=== PATIENT | female | born 1995 | race Caucasian/White ===

== ENCOUNTER 2016-09-24 13:22 | Inpatient (IN) | payer OTHER ==
[~2016-09-24] VITALS: Ht 162.6 cm; Wt 75.0 kg
[~2016-09-24 13:22] MED LIST: HYDR1TAB69 PO; MEDR150D9 IM
[2016-09-24 13:27] VITALS: BP 157/99; PULSE 124; RESP 26; O2SAT 96
[2016-09-24] MEDS ORDERED: Ondansetron 8 mg ODT Tablet ONE (13:29)
[2016-09-24] MEDS ORDERED: Ondansetron 2 mg/mL 2 mL Inj ONE (14:03)
[2016-09-24] MEDS ORDERED: Morphine PF 0.5 mg/mL 10 mL Inj IV ONE (14:15)
[2016-09-24] MEDS ORDERED: 0.9% Sodium Chloride 1,000 ML IV SCH (14:15)
[2016-09-24 14:33] LABS: BASOPHILS % (AUTO) 0.1 % (0-3); EOSINOPHILS % (AUTO) 0.2 % (0-5); MONOCYTES % (AUTO) 3.8 % (4-12); Mean Corpuscular Hemoglobin 30.8 pg (27.0-35.0); Mean Corpuscular Volume 90.7 fL (81-100); NEUTROPHILS % (AUTO) 90.7 % (40-74); Platelet Count 206 bil/L (150-400)
[2016-09-24 14:44] LABS: Magnesium 1.5 mg/dL (1.6-2.6)
[2016-09-24 14:50] LABS: APPEARANCE,URINE HAZY (CLEAR,HAZY); COLOR,URINE DARK YELLOW (YELLOW); OCCULT BLOOD,URINE SMALL (NEGATIVE); PH,URINE 5.5 (5.0-8.0)
[2016-09-24 14:52] LABS: UROBILINOGEN,URINE NORMAL (NORMAL)
--- NOTE | 2016-09-24 15:09 | ED.REPORT ---
HPI-Abd Pain F Under 40 Date of Service Sep 24, 2016 ED Provider: Doc,Ed MD 21yoF presents with abdominal pain, nausea and vomiting, diarrhea since early this morning. The patient states that she is having bouts of diarrhea and vomiting simultaneously. She denies blood in her vomit or in her stool. She is on a combined oral contraceptive pill and has had her gallbladder out previously. The abdominal pain is described as cramping knots and with severe waves of pain. Nursing Notes Stated Complaint: VOMITING Chief Complaint: Female Abdominal Pain Nursing Notes Reviewed: Yes Allergies: Coded Allergies: azithromycin (Verified Allergy, Intermediate, Rash, 09/24/16) Scheduled Norgestimate-Ethinyl Estradiol (Ortho Tri-Cyclen) 1 Each Tablet 1 EACH PO DAILY General Time Seen by MD: 14:20 Chief Complaint Abdominal pain, Diarrhea moderate, Diarrhea severe, Vomiting moderate, Vomiting severe Hx Obtained From: Patient Arrived By: Walk-in Sudden in Onset?: Yes Onset Occurred: 9 - 12 hours ago Symptom Duration: Since onset Progression since Onset: Constant Location: : Epigastric Quality: Cramping, Sharp Radiation: : Does not radiate Severity: Current: Severe Severity: Maximum: Severe Recent Healthcare: No recent doctor visit, No recent hospitalization Risk Factors Ectopic Risk Stratification Risk factors reviewed Past Medical History Past Medical History chronic diarrhea Past Surgical History Reports: Cholecystectomy Smoking History Light Tobacco Smoker (3 cigarrettes per day) Social History Alcohol Use: "Social" Drug Use: THC Other Social History: Good social support, Local resident 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 Ambulatory Status Independent Review of Systems Basic Review of Systems Eyes: Vision NL, No discharge ENT: Hearing NL, No pain, No nasal congestion, No pharyngeal pain Hematologic: No bleeding, No bruising Endocrine: No cold intolerance, No heat intolerance, No weight gain, No weight loss Skin: No bruising, No rash, No itch Allergy / Immune: No allergy Neurologic: NL mental status, No weakness, No numbness Psychiatric: Normal thought content Constitutional: Reports: Chills, Denies: Fever Respiratory: Reports: Non-productive cough, Denies: Dyspnea on exertion, Hemoptysis Cardiovascular: Denies: Chest pain, Dyspnea on exertion, Edema GI: Reports: Abdominal pain, Nausea, Vomiting, Denies: Bloody/tarry stool, Constipation, Hematemesis, Hematochezia, Melena Female: Reports: Flank pain Musculoskeletal: Denies: Extremity pain, Extremity swelling, Neck pain Complete sys rev & neg: except as marked. Physical Exam Initial Vital Signs Vital Signs (First) Date Time Temp Pulse Resp B/P Pulse Ox O2 Delivery O2 Flow Rate FiO2 09/24/16 13:27 36.7 124 26 157/99 96 Room Air Initial VS: Reviewed Head / Eyes: Atraumatic, Normocephalic, PERRL ENT: Mucous membranes moist, Conjunctiva normal, No scleral icterus Neck: Supple, Non-tender, Full range of motion Lymphatic: No lymphadenopathy Extremities: Vascular intact, Neuro intact, No swelling, No tenderness Skin: Warm, Dry, No cyanosis Neurologic: Alert, Oriented, Nonfocal Psychiatric: Mood/affect normal, Behavior normal, Normal thought content General/Constitutional: Awake, Alert, Well appearing Distress / Hydration: Positive: Distress moderate Appearance / Presentation: Positive: Ill appearing/not toxic, In pain Respiratory / Chest: Breath sounds NL, Breath sounds = bilat, No respiratory distress, No rales, No rhonchi, No wheezing Cardiovascular: Heart rate NL, Regular rhythm, Heart sounds NL, Peripheral circulation NL Abdomen: Soft, No guarding, No rebound, BS normoactive, No distention, No palpable mass, No pulsatile mass Tenderness/Guarding/Rebound: Positive: Tender epigastric Organomegaly / Mass / Hernia: Negative: Hepatomegaly, Splenomegaly Head / Eyes: Normocephalic, PERRL, EOMI, No scleral icterus ENT: Airway patent, Mucous membranes moist, Pharynx NL Skin: Color NL, No rash, Warm Interpretation & Diagnostics Lab Results Interpretation Result Diagram: 09/24/16 1400 09/24/16 1400 Test 09/24/16 14:00 09/24/16 14:23 09/24/16 14:42 09/24/16 14:47 White Blood Count 17.5th/mm3 (3.8-10.1) Red Blood Count 4.83mil/mm3 (3.90-5.20) Hemoglobin 14.9g/dL (12.0-15.6) Hematocrit 43.8% (35.0-46.0) Mean Corpuscular Volume 90.7fL (81-100) Mean Corpuscular Hemoglobin 30.8pg (27.0-35.0) Mean Corpuscular Hemoglobin Concent 34.0% (32.0-37.0) Red Cell Distribution Width 11.6% (12.3-15.4) Platelet Count 206bil/L (150-400) Neutrophils (%) (Auto) 90.7% (40-74) Lymphocytes (%) (Auto) 4.9% (14-46) Monocytes (%) (Auto) 3.8% (4-12) Eosinophils (%) (Auto) 0.2% (0-5) Basophils (%) (Auto) 0.1% (0-3) Sodium Level 137mEq/L (134-144) Potassium Level 4.2mEq/L (3.5-5.2) Chloride Level 103mEq/L (97-108) Carbon Dioxide Level 17mmol/L (18-29) Blood Urea Nitrogen 13mg/dL (6-20) Creatinine 0.64mg/dL (0.57-1.00) Estimat Glomerular Filtration Rate 166mL/min (>59) Glucose Level 118mg/dL (60-99) Calcium Level 8.9mg/dL (8.5-10.1) Magnesium Level 1.5mg/dL (1.6-2.6) Total Bilirubin 0.6mg/dL (0.0-1.2) Aspartate Amino Transf (AST/SGOT) 17U/L (0-50) Alanine Aminotransferase (ALT/SGPT) 14U/L (0-32) Alkaline Phosphatase 58U/L (25-150) Total Protein 7.4g/dL (6.4-8.4) Albumin 4.1g/dL (3.4-5.0) Lipase 25U/L (13-60) Urine Color Dark yellow (YELLOW) Urine Appearance Hazy (CLEAR,HAZY) Urine pH 5.5 (5.0-8.0) Urine Specific Buchanan 1.030 (1.003-1.035) Urine Protein Negativemg/dL (NEG,TRACE) Urine Glucose (UA) Negativemg/dL (NEGATIVE) Urine Ketones 80mg/dL (NEGATIVE) Urine Occult Blood Small (NEGATIVE) Urine Nitrite Negative (NEGATIVE) Urine Bilirubin Negative (NEGATIVE) Urine Urobilinogen Normalmg/dL (NORMAL) Urine Leukocyte Esterase Negative (NEGATIVE) Urine RBC 0-2/hpf (0-2) Urine WBC 0-5/hpf (0-5) Urine Epithelial Cells Occasional/hpf (NONE-MOD) Urine Crystals Amorphous urates (NONE Urine Bacteria Few/hpf (NONE-FEW) Urine Hyaline Casts None/lpf (NONE) Urine Granular Casts None seen (NONE SEEN) Urine Waxy Casts None seen (NONE SEEN) Urine Red Blood Cell Casts None seen (NONE SEEN) Urine White Blood Cell Casts None seen (NONE SEEN) Urine Mucus Present (None Seen) Urine Trichomonas None seen (NONE SEEN) Urine Yeast None (NONE SEEN) Urinalysis Comment None Urine Culture Reflexed Not indicated Hold Urine Received (Received) HCG Beta Subunit < 0.500mIU/mL Procalcitonin 0.08ng/mL (0.00-0.08) Test 09/24/16 15:06 Lactic Acid Level 1.6mmol/L (0.4-2.0) Lab Results Interpretation: Dr. Herrera interepretation: CBC significant leukocytosis CMP - low CO2 consistent with volume depletion and GI volume loss negative Magnesium marginally low Re-Eval/Medical Decision Med Decision/Clinical Course 21yoF presents with colic abdominal pain with diarrhea and vomiting. On physical exam the patient is tachypnic and tachycardic in moderate distress. Pain on palpating in the epigastrium and in the left flank. Labs show a anion gap metabolic acidosis with bicarb at 17. Lactic acid has been ordered to confirm cause of acidosis. Tachynpea is likely a compensation for the acidosis. WBC of 17k with elevated HR and RR consistent with Sepsis likely source is gastrointestinal at this time. Source of Hx: Old records Re-Evaluation/Progress #1: Time of Eval: 15:30 Re-Evaluation/Progress Note: Patient turned over to me at change of shift, I (Dr. Herrera) went and reexamined the patient personally. Patient still with ongoing pain, has persistent pain and localized abdominal tenderness that mid abdominal/right sided abdomen Re-Evaluation/Progress #2: Time of Eval: 16:38 Re-Evaluation/Progress Note: Patient reports nausea some better after vomiting and CT scan, but pain still persists at 9 out of 10 and still uncomfortable. Patient updated regarding upcoming surgical consultation Consultation #1: Consulted With: Surgeon Call Returned at: 16:28 Director Public: Will see patient Note: Consult for concern on CT regarding possible closed loop bowel obstruction Consultation #2: Consulted With: Surgeon Note: Dr. Perera saw the patient, recommends admission to the hospitalist service, NG tube, IV fluids and will follow-but does not think surgical intervention is indicated at this time. See their consult note Patient is advised Discharge & Departure Primary Impression: Abdominal pain Abdominal location: unspecified location Qualified Code: R10.9 - Unspecified abdominal pain Additional Impressions: Vomiting Vomiting type: unspecified Vomiting Intractability: intractable Nausea presence: unspecified Qualified Code: R11.10 - Vomiting, unspecified Dehydration Referrals: Melissa Denton PA-C (PCP) Attending Statment This patient was initially seen by the resident. However I personally interviewed, examined, and assumed care for this patient. Review the resident chart, I also reviewed laboratory studies. Laboratory studies were notable for significant leukocytosis, and a moderate metabolic acidosis consistent with dehydration and GI The patient is currently have ongoing pain, also tenderness, and intractable nausea despite several doses of pain and nausea medicine. I felt at this point imaging was indicated and CT was performed. The CT was interpreted by the radiologist concerning for possible closed loop hernia, so surgery was contacted and saw the patient. At this point the patient says she starting to improve and feel better, surgery did not find indication the patient required emergent surgery-but does recommend admission, NG tube placement, continue pain and nausea management, IV rehydration and they will follow the patient on the floor. Patient received oxymetazoline, bupivacaine with epinephrine via mucosal atomization advised to facilitate NG tube placement. An NG tube was placed. The patient continuously pain and nausea medicine and is improved at time of admission. Frandy Pettit DO Sep 24, 2016 14:33 Michael Herrera MD Sep 24, 2016 15:35
[2016-09-24] MEDS ORDERED: 0.9% Sodium Chloride 1,000 ML IV ONE ×2 (15:30→15:35)
[2016-09-24] MEDS ORDERED: Promethazine Inj 25 MG in Dextrose 5%-Pha MIX 50 ML IV ONE (15:35)
[2016-09-24] MEDS: HYDROmorphone 0.5 mg/0.5 mL iSecure Syringe IVPUSH PRN ×4 (15:44→20:03)
--- NOTE | 2016-09-24 16:22 | DRSVH ---
PROCEDURE: CT ABDOMEN AND PELVIS WITH CONTRAST ([id number]) INDICATIONS: abd pain TECHNIQUE: After the administration of intravenous contrast, 5 mm thick sections acquired from the diaphragm to the symphysis. 5 mm coronal and sagittal reformats were acquired. For radiation dose reduction, the following was used: automated exposure control, adjustment of mA and/or kV according to patient siz e. COMPARISON: None. FINDINGS: Image quality: Excellent. ABDOMEN: Lung bases: Lung bases are clear. Heart size is normal. Solid organs: Liver and spleen are normal in size and enhancement. Gallbladder is surgically absent . Biliary system is non dilated. Pancreas enhances normally. No adrenal nodules. Kidneys demonstr ate normal size and enhancement, without hydronephrosis. Peritoneum and bowel: Mildly dilated loops of proximal small bowel left upper quadrant. Loops of smal l bowel are dilated up to 3.4 cm in maximum diameter. The duodenum and proximal jejunum are normal in caliber. Distal transition zone is in the proximal ileum. No free fluid or air. Nodes and vessels: No retroperitoneal or mesenteric adenopathy by size criteria. Aorta and inferior vena cava are normal in size. The appendix is normal. Miscellaneous: No ventral hernias. Umbilical piercing hardware is noted. PELVIS: Genitourinary: Bladder wall thickness is normal. Miscellaneous: No inguinal hernias or adenopathy. Bones: No suspicious bony lesions. No vertebral body compression fractures. IMPRESSION: 1. Mildly dilated loop of small bowel in the left upper quadrant suspicious for early or partial smal l bowel obstruction. Given the appearance of the dilated loops of small bowel, closed-loop obstructio n cannot be excluded. 2. The appendix is normal. 3. No free intraperitoneal fluid or air. 4. Status post cholecystectomy. 5. Findings telephoned to Dr. Michael Herrera on 09/24/2016 at 1617 hrs. Dictated by: Lady Bridges MD, PhD on 09/24/2016 at 16:09 Approved by: Lady Bridges MD, PhD on 09/24/2016 at 16:20
[2016-09-24 16:40] VITALS: BP 131/82; PULSE 90; RESP 16; O2SAT 100
[2016-09-24] MEDS ORDERED: Magnesium Sulf 2 Gm/50mL Water 2 GM in IV Premix 1 EACH IV ONE (17:35)
[2016-09-24] MEDS ORDERED: NORG1TAB7 PO (17:38)
[2016-09-24] MEDS ORDERED: Polyethylene Glycol (PEG) 17 Gm Powder PO PRN (18:05)
[2016-09-24] MEDS ORDERED: Alum-Mag Hydrox-Simeth 30 mL Suspension PO PRN (18:05)
--- NOTE | 2016-09-24 18:25 | CONS ---
[address] [address] CONSULTATION REPORT PATIENT: JOSE SILVESTRE : 1995 MR#: [id number] ADMIT: 09/24/2016 JOB ID: [id number] DATE OF SERVICE: 09/24/2016 REASON FOR CONSULTATION: Michael Herrera MD of the emergency department regarding further evaluation and management of possible small bowel obstruction. HISTORY OF PRESENT ILLNESS: The patient is an otherwise healthy, 21-year-old female, who awoke in the early hours of this morning with complaint of epigastric abdominal pain and subsequent vomiting. She has had persistent cyclical vomiting ever since which prompted her to come to the emergency department. Today, she was found to have a leukocytosis of 17.5. Lactic acid has been normal at 1.6. Her beta hCG was normal and procalcitonin was also normal. CT scan of the abdomen and pelvis was obtained which I personally reviewed. This shows multiple mildly dilated loops of small bowel and was read as suspicious for early or partial small bowel obstruction. Given these findings, I was consulted. The patient tells me she is feeling a little bit better since. She has had this pain in the past but never to this degree. She finds that the vomiting relieves her pain. She has also been having watery diarrhea and terrible headache as well. PAST MEDICAL HISTORY: None. PAST SURGICAL HISTORY: 1. Laparoscopic cholecystectomy at age 14 for acute cholecystitis. 2. Pyloromyotomy as an infant for pyloric stenosis. MEDICATIONS: Oral contraceptive pills. ALLERGIES: AZITHROMYCIN. FAMILY HISTORY: Family history is reviewed. Significant for diabetes and hypertension. SOCIAL HISTORY: She lives in [place]. She works at a marijuana dispensary. She smokes three tobacco cigarettes per day and about 1 g of marijuana per day. She occasionally drinks alcohol but has not recently. REVIEW OF SYSTEMS: Full review of systems is obtained and as per the HPI. PHYSICAL EXAMINATION: She is currently afebrile with temperature 36.8 degrees. She was initially tachycardic this afternoon at 124 but has a heart rate of 90 beats per minute now. Blood pressure is 131/82, satting 100% on room air. The respiratory 16 breaths per minute. In general, she appears comfortable in no acute distress. Cardiovascular: She has a regular rate and rhythm. No appreciated murmurs, rubs, gallops. Pulmonary: Lungs clear to auscultation bilaterally. Vascular: She has no carotid bruit. Neck she has no thyromegaly. Lymph: She has no cervical lymphadenopathy. GI: Her abdomen is soft, nontender, nondistended. She has a right upper quadrant transverse scar. Extremities: Warm without significant edema. Skin is warm without rash. Neuro is grossly intact. Psych is pleasant and appropriate. LABORATORIES: Her white blood cell count this afternoon was 17.5, hematocrit was 43.8, platelet count 206. Her creatinine was 0.64, lactic acid 1.6, procalcitonin 0.08. IMAGING: CT scan is personally reviewed and as per the HPI. ASSESSMENT AND PLAN: This is a 21-year-old female with complaint of abdominal pain and vomiting with CT scan suggestive of possible early small bowel obstruction. I personally reviewed the images of the CT scan. Though it is possible this represents early partial small bowel obstruction, I think it is more likely this is an ileus. Her other surgical history could certainly lead to adhesions that could cause a small bowel obstruction. Regardless, her examination is relatively benign at this time with no abdominal pain or tenderness on exam. She does have some mild persistent nausea. I recommend admission to the hospitalist service with placement of an NG tube at this time. I will continue to follow along but I anticipate that she will likely resolve with conservative management. The other possibility is that this could be cyclical vomiting related to marijuana use though the elevated white blood cell count makes me less inclined toward that diagnosis.
[2016-09-24 20:10] VITALS: BP 128/79; PULSE 92; RESP 17; O2SAT 96
[2016-09-24] MEDS ORDERED: 0.9% Sodium Chloride 250 ML ONE (21:46)
[2016-09-24] MEDS: Famotidine Inj 20 MG in IV Premix 1 EACH IV SCH (21:48)
[2016-09-24] MEDS ORDERED: HYDROmorphone 1 mg/mL Inj IVPUSH PRN (22:10)
--- NOTE | 2016-09-24 22:31 | PCM.HPMED ---
Subjective Date of Service Sep 24, 2016 Primary Provider: Admitting Physician: Wilfrid Sutherland MD Primary Care Physician: Melisas Denton PA-C Attending Physician: Wilfrid Sutherland MD Chief Complaint: Abdominal pain/nausea and vomiting plus diarrhea History of Present Illness: 21yoF presents with abdominal pain, nausea and vomiting, diarrhea since early this morning. The patient states that she is having bouts of diarrhea and vomiting simultaneously. She denies blood in her vomit or in her stool. She is on a combined oral contraceptive pill and has had her gallbladder out previously. The abdominal pain is described as cramping knots and with severe waves of pain. Review of Systems: Gen.: No fevers chills weight loss weight gain Eyes: no visual disturbances or blurring vision HEENT: No nose/throat drainage, no pain in ears or throat, no hearing loss Lymph: No lymph nodes noted Cardiac: No chest pain, orthopnea, PND, palpitations , pedal edema or dyspnea on exertion Pulmonary: no cough, wheezing or bringing up of sputum GI: No anorexia nausea vomiting blood or black in the stool : no dysuria hematuria urinary frequency or decrease in urine output Musculoskeletal: Joint swelling no joint pain no new muscle aches or back pain Neuro: No syncope, seizures no loss of consciousness no new focal weakness, numbness or tingling Psychiatric: New new anxiety insomnia or depression Endocrine: No new heat or cold intolerances polyuria or polydipsia Hematology: No lymphadenopathy or easy bleeding or bruising noted skin: No new rashes, stasis dermatitis Allergies Coded Allergies: azithromycin (Verified Allergy, Intermediate, Rash, 09/24/16) Home Medications Oral contraceptives PMH chronic diarrhea Past Surgical History Reports: Cholecystectomy Pyloric stenosis in childhood Smoking History Light Tobacco Smoker (3 cigarrettes per day) Social History Alcohol Use: "Social" Drug Use: THC Other Social History: Good social support, Local resident Occupation works in [employer] Ambulatory Status Independent Family history mother has cardiac issues Social History Hx Alcohol Use: Yes (rarely) Hx Substance Use: Yes (marijuana) Smoking Status: Light Tobacco Smoker Exam Vital Signs Vital Sign - Last Date Time Temp Pulse Resp B/P Pulse Ox O2 Delivery O2 Flow Rate FiO2 09/24/16 20:10 37.5 92 17 128/79 96 Room Air Exam Gen.- A+ O 3 no apparent distress. Eyes- open conjunctiva clear, pupils equal nonicteric Mouth- oral mucosa moist, no exudate ENT- ears normal, nose normal Neck- supple/trach midline CVS- RRR no murmur or gallop Lungs- CTA GI- NABS/NT soft Musc- moving 4 no obvious deformity Neuro- cranial nerves II through XII intact to gross examination, nonfocal Skin- warm and dry, no rashes/lesions/wounds noted Psych- pleasant and appropriate, Lab and Diagnostics Labs Lactate normal, magnesium 1.5, LFTs normal, urine negative, UA normal Result Diagram: 09/24/16 1400 09/24/16 1400 X-Rays, CTs and MRIs CT abd/pelvis- concurrently reviewed by me 1. Mildly dilated loop of small bowel in the left upper quadrant suspicious for early or partial small bowel obstruction. Given the appearance of the dilated loops of small bowel, closed-loop obstruction cannot be excluded. 2. The appendix is normal. 3. No free intraperitoneal fluid or air. 4. Status post cholecystectomy. 5. Findings telephoned to Dr. Michael Herrera on 09/24/2016 at 1617 hrs Dictated by: Lady Bridges MD, PhD on 09/24/2016 at 16:09 Assessment & Plan 21-year-old female with probable SBO being managed medically with surgery (Dr Perera) following-thank you. Of concern to me is the patient's regression/ worsening when NG tube was not really working. Her pain is primarily epigastric although CT scan suggests a small bowel obstruction much lower down. This in conjunction with her history of surgery 6 weeks of age for pyloric stenosis prompts concerns for possible gastric issues. For now we are treating conservatively with an NG tube, following up labs in the morning for leukocytosis and hypomagnesemia. Her mother is familiar with a good number of physicians here as a caregiver I think for high risk clientele I would have a low tolerance for GI consult. Abdominal pain, diarrhea, nausea and vomiting- morphine did not work for her hydromorphone has, the diarrhea has resolved since presentation, no further nausea and vomiting since NG tube insertion. SBO-output from NG is minty green very unusual color, if she has continued symptoms and not much output perhaps a Gastrografin study to verify placement or simple flat plate. It appears that they are very aware of the fact that the small gauge tube she has seems to adhere to the side of her stomach and has not been entirely effective. epigastric pain- in the setting of the history of the pyloric stenosis would have low tolerance to get GI consult [id number]-[id number]-ut in a.m. likely stress reaction no source of or other signs of infection Hypomagnesemia-replaced in the emergency room will follow up in the a.m. Prophylaxis-DVT none patient is low risk, GI patient is on famotidine IV every 12 Disposition-full code from home Time spent 50min Wilfrid Sutherland MD Sep 24, 2016 22:31
[2016-09-24 23:40] VITALS: BP 126/72; PULSE 89; RESP 17; O2SAT 95
[2016-09-25] MEDS: HYDROmorphone 0.5 mg/0.5 mL iSecure Syringe IVPUSH PRN ×9 (00:44→15:24)
[2016-09-25 03:31] LABS: BASOPHILS % (AUTO) 0 % (0-3); EOSINOPHILS % (AUTO) 0.4 % (0-5); MONOCYTES % (AUTO) 8.7 % (4-12); Mean Corpuscular Hemoglobin 30.6 pg (27.0-35.0); NEUTROPHILS % (AUTO) 65.5 % (40-74); Platelet Count 154 bil/L (150-400)
[2016-09-25] MEDS: Ondansetron 2 mg/mL 2 mL Inj IVPUSH PRN ×2 (03:34→05:40)
--- NOTE | 2016-09-25 03:45 | NUR ---
Arrival to Unit Patient arrived to floor at 2007 via ED [facility]. Patient was able to ambulate independently to hospital bed. Complains of 8/10 abdominal pain. Denies nausea upon admission. NG tube is in place and has been connected to high intermittent suction per MD orders. 1mg Dilaudid IVP was given per MD's initial orders, and upon reassessment patient stated relief. 0.5mg dilaudid IVP is now ordered Q1 hour for pain. Patient continues to complain of 8-9/10 pain. At approx 0330 patient was crying and complaining of 9/10 abdominal pain, and nausea. Zofran, and pain medication given by lithopone charger. Will continue to monitor.
[2016-09-25 03:51] LABS: Magnesium 1.6 mg/dL (1.6-2.6)
--- NOTE | 2016-09-25 03:51 | NUR ---
NG Tube Initially patients NG tube, on high int. suction per MD orders, was putting out a light green drainage. As shift has progressed color has become a darker more brownish color. MD notified and a Type and Cross has been ordered. Labs are to be drawn in the am. Patients vitals are WNL. T 36.7, HR 89, RR 17, BP 126/72, O2 Sats 95% on room air. No additional orders at this time. Will continue to monitor.
[2016-09-25 04:32] VITALS: BP 124/76; PULSE 87; RESP 16; O2SAT 97
--- NOTE | 2016-09-25 06:02 | NUR ---
Pain/ Nausea Patient complaining of increased pain and nausea. States that she feels the pain and nausea is worsening as the night progresses. 4mg Zofran IVP and .5mg Dilaudid IVP was given. Patient states no relief upon reassessment, and states feeling even more nauseous. MD notified, awaiting orders. Care continues. Addendum: 09/25/16 at 0626 by ERICK RAMOS RN Received order for Phenergan 12.5mg IV Q6H PRN
[2016-09-25] MEDS: Promethazine Inj 12.5 MG in 0.9% Sodium Chloride 50 ML IV PRN ×3 (06:33→22:01)
[2016-09-25 07:39] VITALS: BP 108/69; PULSE 83; RESP 16; O2SAT 97
[2016-09-25] MEDS ORDERED: Potassium Chloride Inj 30 MEQ in Dextrose 5% 500 ML IV ONE (08:00)
[2016-09-25] MEDS ORDERED: Magnesium Sulf 2 Gm/50mL Water 2 GM in IV Premix 1 EACH IV ONE (08:00)
[2016-09-25] MEDS: NORGESTIMATE ETHINYL ESTRADIOL PO SCH (08:30)
[2016-09-25] MEDS: Famotidine Inj 20 MG in IV Premix 1 EACH IV SCH ×2 (08:32→20:45)
--- NOTE | 2016-09-25 09:12 | PROG NOTE ---
[address] [address] PROGRESS NOTE PATIENT: JOSE SILVESTRE : 1995 MR#: [id number] ADMIT: 09/24/2016 JOB ID: [id number] DATE: 09/25/2016 SUBJECTIVE: The patient is seen in followup for her admission for partial small bowel obstruction. The NG tube was placed yesterday. Had moderate output. She continues to have some epigastric pain and nausea. She tells me that she gains tremendous relief with Zofran. She has remained afebrile and hemodynamically normal and this morning, she is mildly uncomfortable but alert and oriented in no distress. Her abdomen is soft, nondistended. She has mild tenderness to palpation in her epigastrium. Her white blood cell count has normalized to 6.7 from 17.5. Preop her hematocrit is at 35.8. Her creatinine is 0.61. Over the last 24 hours, her NG tube had 1400 out. ASSESSMENT AND PLAN: This is a 21-year-old female with a history of multiple prior abdominal operations admitted with what seems to be a partial small bowel obstruction. Today I recommend a Gastrografin challenge. Please administered 100 mL of Gastrografin through the NG tube. The tube can then be clamped with the instructions given to the nurse that should the patient experience nausea or vomiting, the NG tube should be hooked back up to suction. After 4 hours of clamping the NG tube, a plain abdominal film can be checked. If there is Gastrografin in the colon, then the tube can be removed. If not then the films should be rechecked at 24 hours. I will continue to follow along.
--- NOTE | 2016-09-25 11:48 | PCM.PNMED ---
Subjective Date of Service Sep 25, 2016 Subjective pt denied having n,v on NG, still drained good amount of biliary, brownish fluid 1.4liter out still has intense cramping on stomach every 15min, lasted 2-3min, feels hungry, thirsty plan for gastrografin study per today Exam Vital Signs Vital Sign - Last Date Time Temp Pulse Resp B/P Pulse Ox O2 Delivery O2 Flow Rate FiO2 09/25/16 07:39 36.7 83 16 108/69 97 Room Air Intake and Output 09/24/16 09/24/16 09/25/16 Cumulative From/Thru 15:00 23:00 07:00 09/24/16 13:27 - 09/25/16 04:32 Intake Total 1000 ml 1000 ml 0 ml 2000 ml Output Total 700 ml 1750 ml 2450 ml Balance 1000 ml 300 ml -1750 ml -450 ml Intake Oral 0 ml 0 ml IV Total 1000 ml 1000 ml 2000 ml Output Urine Total 350 ml 350 ml Gastric Drainage Total 1400 ml 1400 ml Other 700 ml 700 ml # Bowel Movements 0 0 Exam NAD, mildly distressed with NG no JVD, MMM, no LAD RRR, nl s1, s2 no mrg CTAB, no w,c S,ND,mild tender epigastric area,hypoactive BS+, no guarding/rTD warm, no edema, pulses 2/2 IVs and Medications Medications Reviewed: Medications were reviewed in detail Lab and Diagnostics Result Diagram: 09/25/165 09/25/16 0315 X-Rays, CTs and MRIs CT abd/pelvis- concurrently reviewed by me 1. Mildly dilated loop of small bowel in the left upper quadrant suspicious for early or partial small bowel obstruction. Given the appearance of the dilated loops of small bowel, closed-loop obstruction cannot be excluded. 2. The appendix is normal. 3. No free intraperitoneal fluid or air. 4. Status post cholecystectomy. 5. Findings telephoned to Dr. Michael Herrera on 09/24/2016 at 1617 hrs Dictated by: Lady Bridges MD, PhD on 09/24/2016 at 16:09 Assessment & Plan 21-year-old female with marijuana smoking , history of pyloric stenosis as a child s/p surgery p/w acute onset n,v, abdominal cramps, diarrhea. acute, active #acute onset n,v, abdominal cramps, diarrhea, POA, hx suggested that no prior episodes, pt has loose stools at baseline. no excessive marijuana use although utox positive.CT abd/pelvis with CE showed possible partial SBO, no signs of colitis/pancreatitis, NGT inserted on adm. surgery consulted -clinically stable on NG decompression, recommended Gastrografin challenge today to finish tomorrow. -will symptomatically manage with zofran, phenergan despite SBO, benadryl prn, pepcid q12h -s/p IVF bolus, continue 100cc/hr NS today -pain control with dilaudid 0.5mg q1h prn -serial abd exam qshift, if concerning for acute abdomen, will call surgery #leukocytosis, POA, likely due to stress reaction #mild AG metabolic acidosis, POA, from GI fluid loss, resolving #electrolytes imbalance, hypomagnesemia, hypokalemia from emesis, replete target K>4, Mg>2 chronic, stable marijuana use, UTOX positive, encouraged cessation, explained possible association with her sx history of pyloric stenosis as a child s/p surgery, unlikely related to her condition, not surgical candidate, appreciate surgical eval. dispo: likely 2-3more days dvt ppx: LMWH diet: NPO with NG Full Code VTE Mechanical Devices: Intermittant Pneumatic CD Time spent 35min Maria T Coats MD Sep 25, 2016 11:33
[2016-09-25] MEDS: 0.9% Sodium Chloride 1,000 ML IV SCH ×2 (12:38→20:46)
[2016-09-25 14:51] VITALS: BP 125/86; PULSE 69; RESP 16; O2SAT 98
[2016-09-25] MEDS ORDERED: Benzocaine-Menthol Lozenge 2/Pkg PO PRN (15:35)
--- NOTE | 2016-09-25 16:59 | DRSVH ---
PROCEDURE: X-RAY ACUTE ABDOMINAL SERIES ([id number]) INDICATIONS: SBO follow up TECHNIQUE: One view chest and two views of the abdomen were acquired. COMPARISON: [facility], CT, CT ABD PELVIS W CON, 09/24/2016, 15:49. FINDINGS: Surgical changes and devices: NG tube present. Chest: Lungs are clear. Heart size is normal. No pleural effusions. No pneumoperitoneum. Abdomen: Bowel gas pattern is normal. No suspicious calcifications. Visualized solid organ contour s appear normal. Bones: No suspicious bony lesions. IMPRESSION: Resolving small bowel obstruction. Dictated by: Fransisco Carroll RRA Interpreted: Lady Bridges MD on 09/25/2016 at 9:40 Transcribed by: ALFIE on 09/25/2016 at 9:40 Approved by: Lady Bridges MD, PhD on 09/25/2016 at 16:57
--- NOTE | 2016-09-25 17:25 | DRSVH ---
PROCEDURE: X-RAY GASTROGRAFIN CHALLENGE, 1 VIEW ABDOMEN INDICATIONS: SBO TECHNIQUE: One view of the abdomen acquired. COMPARISON: None. FINDINGS: Surgical changes and devices: A gastric tube present. Cholecystectomy clips. Bowel: Contrast media throughout the bowel is noted and there is mild prominence of small bowel withi n the mid left abdomen. Soft tissues: No suspicious abdominal calcifications. Visualized solid organ contours appear normal in size. Bones: No suspicious bony lesions. IMPRESSION: Need suggestive of partial small bowel obstruction. Dictated by: Fransisco Carroll [facility] Interpreted: Lady Bridges MD on 09/25/2016 at 17:16 Transcribed by: ALFIE on 09/25/2016 at 17:16 Approved by: Lady Bridges MD, PhD on 09/26/2016 at 15:19
[2016-09-25] MEDS: HYDROmorphone 1 mg/mL Inj IVPUSH PRN ×3 (17:41→23:27)
--- NOTE | 2016-09-25 19:33 | NUR ---
Pain/nausea/diarrhea Patient with fairly constant pain t/o day along with intermittent cramping and watery stool. Patient medicated with Dilaudid 0.5 ng iv several times but this dose was not effective enough so called and increase n dosage made. Pt had Gastrografin done today tolerated contrast via ng and clamped for 4 hours. Pt with reddish brown output from ng.
[2016-09-25 19:50] VITALS: BP 144/81; PULSE 69; RESP 16; O2SAT 100
--- NOTE | 2016-09-26 02:20 | NUR ---
Pain/ Nausea Patient states better pain control and nausea relief this evening. 12.5mg Phenergan IV Q6h PRN and Dilaudid 1mg IVP Q2h is being given to control pain and nausea. Patient states ondansetron did not provide her with any relief. Will continue to monitor, and continue Q1 hour checks.
[2016-09-26] MEDS: HYDROmorphone 1 mg/mL Inj IVPUSH PRN ×5 (03:29→21:38)
[2016-09-26] MEDS: Promethazine Inj 12.5 MG in 0.9% Sodium Chloride 50 ML IV PRN (04:09)
--- NOTE | 2016-09-26 04:34 | NUR ---
NG Patient notified nurse that NG had been pulled out. NG marker was at 50. NG reinserted to 60, and air instilled to confirm placement. NG hooked back up to high int. suction, but no drainage was present. Night hospitalist notified and ordered an abdominal x-ray to verify NGT placement. Awaiting dictation. Addendum: 09/26/16 at 0438 by ERICK RAMOS RN NGT on high int. suction has started to drain greenish bile again. Care continues.
[2016-09-26 05:20] VITALS: BP 116/79; PULSE 96; RESP 16; O2SAT 94
--- NOTE | 2016-09-26 08:16 | PROG NOTE ---
[address] [address] PROGRESS NOTE PATIENT: JOSE SILVESTRE : 1995 MR#: [id number] ADMIT: 09/24/2016 JOB ID: [id number] DATE: 09/26/2016 SUBJECTIVE: The patient is seen in followup for her possible partial small bowel obstruction. Yesterday, she had a Gastrografin challenge. The plain film obtained 4 hours or so after the administration of Gastrografin shows transit of the contrast already into her colon. This morning she continues to complain of some epigastric discomfort. OBJECTIVE: She has remained afebrile and hemodynamically normal. She is alert and oriented. She appears comfortable. Her abdomen is soft, nontender, nondistended. Mild tenderness in the epigastrium. Yesterday, she had a total of 1.8 L of NG tube output with additional 3 L overnight. She tells me she had two bowel movements yesterday though none are recorded. ASSESSMENT AND PLAN: This is a 21-year-old female admitted with what may have been a partial small bowel obstruction. Gastrografin challenge shows a rapid transit through to the colon. I removed her NG tube. I think she can start on a clear liquid diet and to go slow. I do not anticipate any need for surgery.
[2016-09-26] MEDS: NORGESTIMATE ETHINYL ESTRADIOL PO SCH (08:30)
[2016-09-26] MEDS: Famotidine Inj 20 MG in IV Premix 1 EACH IV SCH ×2 (09:06→23:05)
[2016-09-26] MEDS: 0.9% Sodium Chloride 1,000 ML IV SCH ×2 (09:06→16:00)
[2016-09-26] MEDS ORDERED: Pantoprazole 4 mg/mL 10 mL Inj IVPUSH SCH (09:15)
[2016-09-26] MEDS ORDERED: MetoCLOpramide 5 mg/mL 2 mL Inj IVPUSH SCH (09:15)
--- NOTE | 2016-09-26 09:30 | DRSVH ---
PROCEDURE: X-RAY ABDOMEN, ONE VIEW ([id number]) INDICATIONS: verify NGT placement TECHNIQUE: One view of the abdomen acquired. COMPARISON: [facility], CR, ABD/AP 1VW, 11/30/2011, 5:35. FINDINGS: Surgical changes and devices: Cholecystectomy clips. Nasogastric tube has been placed tip projected over the gastric antrum. Bowel: Residual contrast media seen within visualized portions of the colon. Soft tissues: No suspicious abdominal calcifications. Visualized solid organ contours appear normal in size. Bones: No suspicious bony lesions. IMPRESSION: Placement of nasogastric tube. Dictated by: Fransisco ELLINGTON Interpreted: Haydee Anton MD on 09/26/2016 at 9:28 Transcribed by: REVA on 09/26/2016 at 9:29 Approved by: Haydee Anton M.D. on 09/26/2016 at 14:54
[2016-09-26 10:12] LABS: BASOPHILS % (AUTO) 0.1 % (0-3); EOSINOPHILS % (AUTO) 0.5 % (0-5); MONOCYTES % (AUTO) 12.7 % (4-12); Mean Corpuscular Hemoglobin 30.9 pg (27.0-35.0); Mean Corpuscular Volume 92.4 fL (81-100); NEUTROPHILS % (AUTO) 62.6 % (40-74); Platelet Count 166 bil/L (150-400)
--- NOTE | 2016-09-26 10:24 | NUR ---
Social Work Note: Screen Note Data& Assessment: EMR reviewed. Genia Desir is a 21 year old female admitted on 09/24/16 for vomiting and abdominal pain . Pt has Hank LEROY for insurance coverage and sees Melissa Denton PA-C for primary care. Pt lives in [place] with alone and is independent at baseline. Pt is currently SBA in her room. No discharge needs identified at this time. SW to continue to follow if any needs arise. Plan: Anticipated discharge home via POV when medically ready. No discharge needs identified at this time. SW to continue to follow if any needs arise. Marci Pollard, JUAN, ACM
--- NOTE | 2016-09-26 11:15 | PCM.PNMED ---
Subjective Date of Service Sep 26, 2016 Subjective pt was tearful, stated that she was in pain all night cramping in nature, lasted >30min, on and off NG was discontinued by as no obstruction seen with Gastrografin challenge pt still has watery diarrhea Exam Vital Signs Vital Sign - Last Date Time Temp Pulse Resp B/P Pulse Ox O2 Delivery O2 Flow Rate FiO2 09/26/16 05:20 37.2 96 16 116/79 94 Room Air Intake and Output 09/25/16 09/25/16 09/26/16 Cumulative From/Thru 15:00 23:00 07:00 09/24/16 13:27 - 09/26/16 06:36 Intake Total 200 ml 2653 ml 4853 ml Output Total 400 ml 3000 ml 5850 ml Balance -200 ml -347 ml -997 ml Intake Oral 200 ml 0 ml 200 ml IV Total 2653 ml 4653 ml Output Urine Total 350 ml Gastric Drainage Total 400 ml 3000 ml 4800 ml Other 700 ml # Voids 3 2 5 # Bowel Movements 0 0 Exam distressed due to pain no JVD, MMM, no LAD RRR, nl s1, s2 no mrg CTAB, no w,c S,ND, mild epigastric td,normoactive BS+ warm, no edema, pulses 2/2 IVs and Medications Medications Reviewed: Medications were reviewed in detail Lab and Diagnostics Result Diagram: 09/26/16 0915 09/25/16 0315 X-Rays, CTs and MRIs CT abd/pelvis- concurrently reviewed by me 1. Mildly dilated loop of small bowel in the left upper quadrant suspicious for early or partial small bowel obstruction. Given the appearance of the dilated loops of small bowel, closed-loop obstruction cannot be excluded. 2. The appendix is normal. 3. No free intraperitoneal fluid or air. 4. Status post cholecystectomy. 5. Findings telephoned to Dr. Michael Herrera on 09/24/2016 at 1617 hrs Dictated by: Lady Bridges MD, PhD on 09/24/2016 at 16:09 Assessment & Plan 21-year-old female with marijuana smoking , history of pyloric stenosis as a child s/p surgery p/w acute onset n,v, abdominal cramps, diarrhea. acute, active #acute onset n,v, abdominal cramps, diarrhea, POA, hx suggested that no prior episodes, pt has loose stools at baseline. no excessive marijuana use although utox positive.CT abd/pelvis with CE showed possible partial SBO, no signs of colitis/pancreatitis, NGT inserted on adm. surgery consulted. pt was continued on NG decompression, no more obstruction with Gastrografin challenge seen, therefore NG was out 3/3 by -Given persistent symptoms, no SBO, will escalate meds for presumed gastroparesis -switched phenergan to metoclopramide q6, benadryl q6h, added PPI with h2 blockers, added erythromycin q8h -s/p IVF bolus on adm, continue 100cc/hr NS, replete lytes -pain control with dilaudid increased to 1-4mg q2 prn -will send stool pcr given persistent diarrhea despite no signs of infection. #mild AG metabolic acidosis, POA, from GI fluid loss, resolving #electrolytes imbalance, hypomagnesemia, hypokalemia from emesis, replete target K>4, Mg>2 chronic, stable #leukocytosis, POA, likely due to stress reaction, resolved #marijuana use, UTOX positive, encouraged cessation, explained possible association with her sx #history of pyloric stenosis as a child s/p surgery, unlikely related to her condition, not surgical candidate, appreciate surgical eval. dispo: likely 2-3more days dvt ppx: LMWH diet: NPO with NG Full Code VTE Mechanical Devices: Intermittant Pneumatic CD Time spent 35min Maria T Coats MD Sep 26, 2016 11:15
[2016-09-26 11:19] LABS: Magnesium 1.7 mg/dL (1.6-2.6); Phosphorus 2.4 mg/dL (2.5-4.9)
[2016-09-26] MEDS ORDERED: Magnesium Sulf 2 Gm/50mL Water 2 GM in IV Premix 1 EACH IV ONE (12:10)
[2016-09-26] MEDS ORDERED: Promethazine Inj 12.5 MG in 0.9% Sodium Chloride 50 ML IV SCH (12:20)
[2016-09-26] MEDS: SODIUM CHLORIDE 0.9% IV SCH ×3 (13:17→21:49)
[2016-09-26] MEDS: ERYTHROMYCIN IV SCH ×3 (13:17→21:49)
[2016-09-26 14:07] VITALS: BP 153/82; PULSE 93; RESP 18; O2SAT 98
--- NOTE | 2016-09-26 19:23 | NUR ---
Pain/NG/virus Patient with abd pain this am but has resolved most of the day . Diet increased and patient tolerated clear liquids so advanced to soft diet tonight. Patient had ng removed this am by surgeon. Stool sample sent and came back positive for norovirus so patient place din contact isolation.
[2016-09-26 19:58] VITALS: BP 127/82; PULSE 82; RESP 18; O2SAT 99
[2016-09-27] MEDS: 0.9% Sodium Chloride 1,000 ML IV SCH (01:18)
[2016-09-27] MEDS: ERYTHROMYCIN IV SCH (05:00)
[2016-09-27] MEDS: SODIUM CHLORIDE 0.9% IV SCH (05:00)
[2016-09-27 05:34] VITALS: BP 113/70; PULSE 77; O2SAT 98
[2016-09-27 06:51] LABS: Magnesium 1.8 mg/dL (1.6-2.6); Phosphorus 2.8 mg/dL (2.5-4.9)
[2016-09-27 07:03] LABS: BASOPHILS % (AUTO) 0.1 % (0-3); EOSINOPHILS % (AUTO) 1.3 % (0-5); MONOCYTES % (AUTO) 8.4 % (4-12); Mean Corpuscular Volume 90.9 fL (81-100); NEUTROPHILS % (AUTO) 63.1 % (40-74); Platelet Count 189 bil/L (150-400)
--- NOTE | 2016-09-27 07:36 | NUR ---
Patient Emotional On initial assessment, patient was crying. When asked, she stated that Dr. Perera took out her ng tube and did not explain anything else to her. She stated she was scared about what was going on with her stomach. Patient also stated that she tried to eat and after she had rice, her stomach pain increased significantly. Dilaudid IVP administered. VSS. Call light within reach. Care continues.
[2016-09-27] MEDS ORDERED: Pantoprazole 40 mg ER24 Tablet PO SCH (07:45)
[2016-09-27] MEDS ORDERED: oxyCODONE-Acetamin 5-325 mg Tablet PO PRN (07:45)
[2016-09-27] MEDS ORDERED: Ondansetron 8 mg ODT Tablet PO PRN (07:45)
[2016-09-27] MEDS: NORGESTIMATE ETHINYL ESTRADIOL PO SCH (08:30)
[2016-09-27] MEDS ORDERED: PANT40TA3 PO (09:31)
[2016-09-27] MEDS ORDERED: METO10TA3 PO (09:31)
[2016-09-27] MEDS ORDERED: ONDA8TAB10 PO (09:31)
[2016-09-27] MEDS ORDERED: OXYC1TAB24 PO (09:31)
--- NOTE | 2016-09-27 10:55 | NUR ---
Social Work- Readiness for Discharge Data: EMR reviewed. Pt is on day 3 of hospitalization for vomiting and abdominal pain. Per RN in rounds, pt to advance diet. Pt is not medically stable, anticipate discharge later today. Pt lives in [place] with roommate, Mariya, and is independent at baseline. SW spoke with pt regarding DPOA, left paperwork to be completed. Pt to discharge home with roommate to transport via POV. No discharge needs identified at this time. SW to continue to follow if any needs arise. Assessment: [place]. Plan: Anticipated discharge later today, home with roommate to transport via POV. No discharge needs identified at this time. SW to continue to follow if any needs arise. CT Rodriguez
--- NOTE | 2016-09-27 12:04 | NUR ---
Social Work- Discharge Data: EMR reviewed. Pt is on day 3 of hospitalization for vomiting and abdominal pain. Pt is medically stable to discharge today. Pt to discharge home with roommate to transport via POV. No discharge needs. Assessment: [place]. Plan: Pt to discharge home with roommate to transport via POV. No discharge needs. CT Rodriguez
--- NOTE | 2016-09-27 12:09 | PCM.DIMED ---
Discharge Instructions Date of Service Sep 27, 2016 Dates of Hospitalization Sep 24, 2016 at 18:39 Discharge Diagnosis Discharge Diagnosis acute viral gastroenteritis due to Noro virus probable partial small bowel obstruction due to functional impairment Medication Instructions You can take zofran every 6hours for nausea, vomiting You can take Reglan, percocet every 6hours for belly pain You can consider taking pantoprazole, anti-acid pills twice a day for 2-3more days until your symptoms completely resolved Diet Other (please slowly advance your diet to full regular diet) Activity No restrictions Call your provider Fever or Chills, Vomitting, Excessive diarrhea Patient Instructions You were hospitalized with intractable nausea, vomiting, abdominal pain, diarrhea, found to have noro virus, likely caused all of her symptoms. You were symptomatically managed with medicine, greatly improved. Please note that the virus can become contagious by contact, please keep hand hygiene appropriately Please note that Marijuana possibly associated symptoms similar to your presentation, complete cessation is recommended especially if this symptoms recur Follow-up plan Please follow up with her primary doctor in 2 weeks Follow-up Provider: Melissa Denton PA-C Follow-up with PCP in: 2 weeks Maria T Coats MD Sep 27, 2016 12:07
--- NOTE | 2016-09-27 13:17 | PROG NOTE ---
[address] [address] PROGRESS NOTE PATIENT: JOSE SILVESTRE : 1995 MR#: [id number] ADMIT: 09/24/2016 JOB ID: [id number] DATE: 09/27/2016 The patient says her abdominal pain and nausea has resolved. She is tolerating soft food and passing a normal bowel movement. Her abdomen is benign. IMPRESSION/PLAN: It does not look like she had a mechanical small bowel obstruction. General Surgery will sign off.
--- NOTE | 2016-09-27 14:03 | NUR ---
Discharge Orders for discharge were received. The patient was made aware of the plan to discharge and was agreeable to go. The patient was given information regarding her diagnosis and treatment, signs and symptoms to be aware of, follow up information as well as scripts and information on new medication. The patient signified understanding of this information and her asymptomatic IV was removed intact. The patient was then dressed in her own clothing and her belongings were gathered. The patient then ambulated to the main entrance to a private vehicle with a friend. At the time of discharge the patient was alert and oriented, without pain, nausea or other difficulties.
--- NOTE | 2016-09-28 20:56 | PCM.DC.MED ---
Discharge Summary Date of Service Sep 27, 2016 Dates of Hospitalization Date of Hospital Admission Sep 24, 2016 at 18:39 Date of Discharge: Sep 27, 2016 Providers: Admitting Physician: Wilfrid Sutherland MD Primary Care Physician: Melissa Denton PA-C Attending Physician: Wilfrid Sutherland MD Diagnosis at Time of Discharge Diagnosis at Time of Discharge acute problems acute viral gastroenteritis due to Noro virus probable partial small bowel obstruction due to functional impairment vs mechanical mild AG metabolic acidosis, electrolytes imbalance from GI fluid loss chronic problems #marijuana use #history of pyloric stenosis Consultations General surgery Procedures XRay, CTs & MRIs PROCEDURE: X-RAY GASTROGRAFIN CHALLENGE, 1 VIEW ABDOMEN INDICATIONS: SBO TECHNIQUE: One view of the abdomen acquired. COMPARISON: None. FINDINGS: Surgical changes and devices: A gastric tube present. Cholecystectomy clips. Bowel: Contrast media throughout the bowel is noted and there is mild prominence of small bowel within the mid left abdomen. Soft tissues: No suspicious abdominal calcifications. Visualized solid organ contours appear normal in size. Bones: No suspicious bony lesions. IMPRESSION: Need suggestive of partial small bowel obstruction. Dictated by: Fransisco Carroll [facility] Interpreted: Lady Bridges MD on 09/25/2016 at 17:16 Transcribed by: ALFIE on 09/25/2016 at 17:16 Approved by: Lady Bridges MD, PhD on 09/26/2016 at 15:19 PROCEDURE: CT ABDOMEN AND PELVIS WITH CONTRAST ([id number]) INDICATIONS: abd pain TECHNIQUE: After the administration of intravenous contrast, 5 mm thick sections acquired from the diaphragm to the symphysis. 5 mm coronal and sagittal reformats were acquired. For radiation dose reduction, the following was used: automated exposure control, adjustment of mA and/or kV according to patient size. COMPARISON: None. FINDINGS: Image quality: Excellent. ABDOMEN: Lung bases: Lung bases are clear. Heart size is normal. Solid organs: Liver and spleen are normal in size and enhancement. Gallbladder is surgically absent. Biliary system is non dilated. Pancreas enhances normally. No adrenal nodules. Kidneys demonstrate normal size and enhancement, without hydronephrosis. Peritoneum and bowel: Mildly dilated loops of proximal small bowel left upper quadrant. Loops of small bowel are dilated up to 3.4 cm in maximum diameter. The duodenum and proximal jejunum are normal in caliber. Distal transition zone is in the proximal ileum. No free fluid or air. Nodes and vessels: No retroperitoneal or mesenteric adenopathy by size criteria. Aorta and inferior vena cava are normal in size. The appendix is normal. Miscellaneous: No ventral hernias. Umbilical piercing hardware is noted. PELVIS: Genitourinary: Bladder wall thickness is normal. Miscellaneous: No inguinal hernias or adenopathy. Bones: No suspicious bony lesions. No vertebral body compression fractures. IMPRESSION: 1. Mildly dilated loop of small bowel in the left upper quadrant suspicious for early or partial small bowel obstruction. Given the appearance of the dilated loops of small bowel, closed-loop obstruction cannot be excluded. 2. The appendix is normal. 3. No free intraperitoneal fluid or air. 4. Status post cholecystectomy. 5. Findings telephoned to Dr. Michael Herrera on 09/24/2016 at 1617 hrs. Dictated by: Lady Bridges MD, PhD on 09/24/2016 at 16:09 Approved by: Lady Bridges MD, PhD on 09/24/2016 at 16:20 Brief History HPI was obtained by on 09/24 21yoF presents with abdominal pain, nausea and vomiting, diarrhea since early this morning. The patient states that she is having bouts of diarrhea and vomiting simultaneously. She denies blood in her vomit or in her stool. She is on a combined oral contraceptive pill and has had her gallbladder out previously. The abdominal pain is described as cramping knots and with severe waves of pain. Hospital Course 21-year-old female with marijuana smoking , history of pyloric stenosis as a child s/p surgery p/w acute onset n,v, abdominal cramps, diarrhea. acute problems #acute onset intractable n,v, abdominal cramps, likely due to CT abd/pelvis with CE on admission showed possible partial SBO, no signs of colitis/pancreatitis, NGT inserted on adm. surgery consulted given hx of pyloric stenosis as a child s/p surgery(?myotomy) pt was continued on NG decompression for few days. no more obstruction with Gastrografin challenge seen on 09/26, therefore NG was discontinued by . Pt later was found to have Noro virus from diarrhea. After NGT was off, pt was started on aggressive regimen for gastroparesis with metoclopramide q6, benadryl q6h, added PPI with h2 blockers, added erythromycin q8h. Symptoms rapidly improved. IVF was continued given GI fluid loss. Pain was eventually controlled without any n, v. patient was able to tolerate soft diet. Although pt smoke marijuana, given no daily smoking, no prior episode of similar symptoms, It was more likely related acute viral episodes triggered her symptoms. However, given strongly relation of mairijuana and CVS, it was strongly recommended to stop smoking. No surgical intervention recommended per surgery given improvement, deemed safe for d/c. #mild AG metabolic acidosis, POA, from GI fluid loss, resolved upon d/c. #electrolytes imbalance, hypomagnesemia, hypokalemia from emesis, resolved chronic, stable #leukocytosis, POA, likely due to stress reaction, resolved #marijuana use, UTOX positive, encouraged cessation, explained possible association with her sx #history of pyloric stenosis as a child s/p surgery, unlikely related to her condition, not surgical candidate, appreciate surgical eval. Exam Vital Signs (Last) Date Time Temp Pulse Resp B/P Pulse Ox O2 Delivery O2 Flow Rate FiO2 09/27/16 05:34 36.8 77 113/70 98 Room Air 09/26/16 19:58 18 Exam distressed due to pain no JVD, MMM, no LAD RRR, nl s1, s2 no mrg CTAB, no w,c S,ND, mild epigastric td,normoactive BS+ warm, no edema, pulses 2/2 Test 09/24/16 14:00 09/24/16 14:23 09/24/16 14:42 09/24/16 14:47 Lipase 25U/L (13-60) Urine Color Dark yellow (YELLOW) Urine Appearance Hazy (CLEAR,HAZY) Urine pH 5.5 (5.0-8.0) Urine Specific [place] 1.030 (1.003-1.035) Urine Protein Negativemg/dL (NEG,TRACE) Urine Glucose (UA) Negativemg/dL (NEGATIVE) Urine Ketones 80mg/dL (NEGATIVE) Urine Occult Blood Small (NEGATIVE) Urine Nitrite Negative (NEGATIVE) Urine Bilirubin Negative (NEGATIVE) Urine Urobilinogen Normalmg/dL (NORMAL) Urine Leukocyte Esterase Negative (NEGATIVE) Urine RBC 0-2/hpf (0-2) Urine WBC 0-5/hpf (0-5) Urine Epithelial Cells Occasional/hpf (NONE-MOD) Urine Crystals Amorphous urates (NONE Urine Bacteria Few/hpf (NONE-FEW) Urine Hyaline Casts None/lpf (NONE) Urine Granular Casts None seen (NONE SEEN) Urine Waxy Casts None seen (NONE SEEN) Urine Red Blood Cell Casts None seen (NONE SEEN) Urine White Blood Cell Casts None seen (NONE SEEN) Urine Mucus Present (None Seen) Urine Trichomonas None seen (NONE SEEN) Urine Yeast None (NONE SEEN) Urinalysis Comment None Urine Culture Reflexed Not indicated Hold Urine Received (Received) Urine Opiates Screen Negative Urine Methadone Screen Negative Urine Barbiturates Screen Negative Urine Amphetamines Screen Negative Urine Benzodiazepines Screen Negative Urine Cocaine Metabolite Screen Negative Urine Cannabinoids Screen Positive HCG Beta Subunit < 0.500mIU/mL Procalcitonin 0.08ng/mL (0.00-0.08) Test 09/24/16 15:06 09/27/16 06:05 Lactic Acid Level 1.6mmol/L (0.4-2.0) White Blood Count 6.8th/mm3 (3.8-10.1) Red Blood Count 3.64mil/mm3 (3.90-5.20) Hemoglobin 11.3g/dL (12.0-15.6) Hematocrit 33.1% (35.0-46.0) Mean Corpuscular Volume 90.9fL (81-100) Mean Corpuscular Hemoglobin 31.0pg (27.0-35.0) Mean Corpuscular Hemoglobin Concent 34.1% (32.0-37.0) Red Cell Distribution Width 11.2% (12.3-15.4) Platelet Count 189bil/L (150-400) Neutrophils (%) (Auto) 63.1% (40-74) Lymphocytes (%) (Auto) 26.8% (14-46) Monocytes (%) (Auto) 8.4% (4-12) Eosinophils (%) (Auto) 1.3% (0-5) Basophils (%) (Auto) 0.1% (0-3) Sodium Level 136mEq/L (134-144) Potassium Level 3.9mEq/L (3.5-5.2) Chloride Level 105mEq/L (97-108) Carbon Dioxide Level 19mmol/L (18-29) Blood Urea Nitrogen 5mg/dL (6-20) Creatinine 0.48mg/dL (0.57-1.00) Estimat Glomerular Filtration Rate 232mL/min (>59) Glucose Level 101mg/dL (60-99) Calcium Level 8.2mg/dL (8.5-10.1) Phosphorus Level 2.8mg/dL (2.5-4.9) Magnesium Level 1.8mg/dL (1.6-2.6) Total Bilirubin 0.3mg/dL (0.0-1.2) Aspartate Amino Transf (AST/SGOT) 15U/L (0-50) Alanine Aminotransferase (ALT/SGPT) 11U/L (0-32) Alkaline Phosphatase 50U/L (25-150) Total Protein 5.9g/dL (6.4-8.4) Albumin 3.0g/dL (3.4-5.0) Discharge Medications Discharge Medications Norgestimate-Ethinyl Estradiol (Ortho Tri-Cyclen) 1 Each Tablet 1 EACH PO DAILY (Reported) As needed Metoclopramide (Metoclopramide) 10 Mg Tablet 10 MG PO ACHS PRN PRN For GI Cramps Prescribed by: MARIA T HUBBARD MD Ondansetron ODT (Ondansetron ODT) 8 Mg Tab.rapdis 8 MG PO Q6H PRN PRN For Nausea /Vomiting Prescribed by: MARIA T HUBBARD MD Pantoprazole DR (Pantoprazole DR) 40 Mg Tablet.dr 40 MG PO BIDAC PRN PRN For GI Cramps Prescribed by: MARIA T HUBBARD MD oxyCODONE-Acetaminophen 5-325 mg (oxyCODONE-Acetaminophen 5-325 mg) 1 Each Tablet 1 TAB PO Q4H PRN PRN For Pain Prescribed by: MARIA T HUBBARD MD Additional med instructions You can take zofran every 6hours for nausea, vomiting You can take Reglan, percocet every 6hours for belly pain You can consider taking pantoprazole, anti-acid pills twice a day for 2-3more days until your symptoms completely resolved Followup Plan Disposition: home Follow-up plan Please follow up with her primary doctor in 2 weeks Discharge Diet: Other (please slowly advance your diet to full regular diet) Discharge Activity: No restrictions Patient Instructions You were hospitalized with intractable nausea, vomiting, abdominal pain, diarrhea, found to have noro virus, likely caused all of her symptoms. You were symptomatically managed with medicine, greatly improved. Please note that the virus can become contagious by contact, please keep hand hygiene appropriately Please note that Marijuana possibly associated symptoms similar to your presentation, complete cessation is recommended especially if this symptoms recur Follow-up Provider: Melissa Denton PA-C Follow-up with PCP in: 2 weeks Time spent 65min Maria T Hubbard MD Sep 28, 2016 20:56
== END 2016-09-27 12:15 | disposition home or self-care (01) | DRG 392 ==
LOC: SED 13:22 → OSC 18:39 → OBSVTOIN 18:39
PROVIDERS: ADMIT Hospitalist; ATTEND Hospitalist
PROC: 0D9670Z Drainage of Stomach with Drainage Device, Via Natural or Artificial Opening (ICD-10-PCS; principal; 2016-09-24)
DX: A08.11 Acute gastroenteropathy due to Norwalk agent (principal); E87.2 Acidosis; F17.210 Nicotine dependence, cigarettes, uncomplicated; E83.42 Hypomagnesemia; F12.90 Cannabis use, unspecified, uncomplicated; E87.6 Hypokalemia

== ENCOUNTER 2017-01-27 19:26 | Emergency (ER) | payer OTHER ==
[~2017-01-27] VITALS: Ht 165.1 cm; Wt 86.3 kg
[~2017-01-27 19:26] MED LIST changes: -HYDR1TAB69 PO; -MEDR150D9 IM; +METO10TA3 PO; +NORG1TAB7 PO; +ONDA8TAB10 PO; +OXYC1TAB24 PO; +PANT40TA3 PO
[2017-01-27 19:28] VITALS: BP 130/76; PULSE 86; RESP 16; O2SAT 99
--- NOTE | 2017-01-27 19:38 | ED.REPORT ---
HPI-Allergic Reaction Date of Service Jan 27, 2017 ED Provider: Dr. Duke Pt is a 22 year old female presenting to the ED complaining of a rash onset 4 days ago. She reports that it started as small, itchy, redness on her chest, but it has spread diffusely. She reports that she was camping and woke up with the rash. She has been taking Benadryl with moderate relief but that the rash remains. She denies any recent change in medication. Denies any other symptoms at this time. She denies fevers. Nursing Notes Stated Complaint: POSS ALLERGIC REACTION Chief Complaint: Allergic Reaction Nursing Notes Reviewed: Yes Allergies: Coded Allergies: azithromycin (Verified Allergy, Intermediate, Rash, 01/27/17) Scheduled Norgestimate-Ethinyl Estradiol (Ortho Tri-Cyclen) 1 Each Tablet 1 EACH PO DAILY Prednisone (PredniSONE) 20 Mg Tablet 40 MG PO DAILY Scheduled PRN Metoclopramide (Metoclopramide) 10 Mg Tablet 10 MG PO ACHS PRN PRN For GI Cramps Ondansetron ODT (Ondansetron ODT) 8 Mg Tab.rapdis 8 MG PO Q6H PRN PRN For Nausea /Vomiting Pantoprazole DR (Pantoprazole DR) 40 Mg Tablet.dr 40 MG PO BIDAC PRN PRN For GI Cramps oxyCODONE-Acetaminophen 5-325 mg (oxyCODONE-Acetaminophen 5-325 mg) 1 Each Tablet 1 TAB PO Q4H PRN PRN For Pain General Time Seen by MD: 19:37 Chief Complaint Rash Hx Obtained From: Patient Arrived By: Walk-in Onset Occurred: 4 days ago Symptom Duration: Since onset Progression Since Onset: Gradually worsening Location: : Chest Quality: Itching Severity: Current: No pain currently Severity: Maximum: No pain Recent Healthcare: No recent doctor visit, No recent hospitalization Similar Sx Previous: No Past Medical History Past Medical History chronic diarrhea Past Surgical History Reports: Cholecystectomy Smoking History Light Tobacco Smoker Social History Alcohol Use: "Social" Drug Use: THC Other Social History: Good social support, Local resident Occupation works in [employer] Ambulatory Status Independent Review of Systems Constitutional: Denies: Fever, Weakness - generalized Respiratory: Denies: Shortness of breath Skin: Reports Itching, Reports Rash Neurologic: Denies: Weakness Complete sys rev & neg: except as marked. Physical Exam Initial Vital Signs Vital Signs (First) Date Time Temp Pulse Resp B/P Pulse Ox O2 Delivery O2 Flow Rate FiO2 01/27/17 19:28 36.8 86 16 130/76 99 01/27/17 20:14 Room Air Initial VS: Reviewed Head / Eyes: Atraumatic, Normocephalic, PERRL ENT: Mucous membranes moist, Conjunctiva normal, No scleral icterus Abdomen / GI: Soft, Non-tender, No guarding, No rebound, No distention Extremities: Vascular intact, Neuro intact, No swelling, No tenderness Neurologic: Alert, Oriented, Nonfocal Psychiatric: Mood/affect normal, Behavior normal, Normal thought content General/Constitutional: Awake, Alert, Well appearing Respiratory / Chest: Breath sounds NL, Breath sounds = bilat, No respiratory distress, No rales, No rhonchi, No wheezing, No retractions, No stridor Cardiovascular: Heart rate NL, Regular rhythm, Heart sounds NL, Peripheral circulation NL Skin: Warm, Dry, Intact Diffuse erythematous itchy papules on the back and trunk. No purulence. No lip or face swelling. Re-Eval/Medical Decision Med Decision/Clinical Course Pt is a 22 year old female presenting to the ED complaining of a rash onset 4 days ago. She reports that it started as small, itchy, redness on her chest, but it has spread diffusely. She reports that she was camping and woke up with the rash. She has been taking Benadryl with moderate relief but that the rash remains. She denies any recent change in medication. Denies any other symptoms at this time. She denies fevers. Here in the emergency department the patient is afebrile with stable vital signs distress. Rash is not consistent with abscess or cellulitis. No evidence of Jeffrey Austin syndrome. Patient afebrile and in no apparent distress. I prescribed a 5 day course of prednisone and patient is advised to continue Benadryl for itching. She will return if the rash worsens. At this time, feel that she is appropriate for discharge. Prior to discharge follow-up and return precautions were reviewed in detail with the patient who verbalized understanding and agreement with the plan. The patient was discharged in stable condition. Re-Evaluation/Progress : Time of Eval: 19:58 Patient Status: Condition improved Re-Evaluation/Progress Note: Discussed plan for discharge. Pt understands and agrees with plan. Counseled Regarding: Diagnosis, Lab results, Need for follow-up, When/why to return to ED Discharge & Departure Primary Impression: Rash Additional Impressions: Itching Allergic reaction Encounter type: initial encounter Qualified Code: T78.40XA - Allergy, unspecified, initial encounter Disposition: Home Discharge Condition All VS Reviewed: Yes Condition: Improved Additional Instructions: No dangerous cause for your rash was identified. Continue to take Benadryl and take prednisone as directed. Return to the ER if you develop any new or worsening symptoms such as swelling of your lips or face. Follow up with your primary care physician in the next couple days Referrals: Melissa Denton PA-C (PCP) Alex Attestation Portions of this note were transcribed by Ginna Rodriguez. I, Dr. Duke personally performed the history, physical exam and medical decision-making; I reviewed and confirmed the accuracy of the information in the transcribed note. Signed by: Alex Prakash, 01/27/2017 at 1957. copies to: Melissa Denton PA-C, Beck O MD Jan 27, 2017 19:38 GINNA RODRIGUEZ Jan 27, 2017 19:41
[2017-01-27] MEDS ORDERED: PRE20 PO (19:56)
[2017-01-27] MEDS ORDERED: predniSONE 20 mg Tablet PO ONE (20:05)
[2017-01-27 20:14] VITALS: BP 118/70; PULSE 76; RESP 16; O2SAT 99
== END 2017-01-27 20:17 | disposition home or self-care (01) ==
LOC: SED 19:26
DX: R21 Rash and other nonspecific skin eruption (principal); T78.49XA Other allergy, initial encounter; Y93.89 Activity, other specified; Y92.89 Other specified places as the place of occurrence of the external cause; Y99.8 Other external cause status; F17.200 Nicotine dependence, unspecified, uncomplicated; Z88.1 Allergy status to other antibiotic agents